=== PATIENT | female | born 1980 | race Caucasian/White ===

== ENCOUNTER 2022-07-16 18:30 | Emergency (ER) | payer OTHER ==
[~2022-07-16] VITALS: Ht 160 cm; Wt 59.0 kg
[2022-07-16] MEDS ORDERED: SULF-59 PO (19:11)
--- NOTE | 2022-07-16 19:35 | NUR ---
Patient discharged with v/s stable. Written and verbal after care instructions given and explained. Patient verbalized understanding. Police with steady gait. All questions addressed prior to discharge. Advised to follow up with [employer]D.
--- NOTE | 2022-07-16 19:37 | NUR ---
Pt seen and evaluated by [facility]
== END 2022-07-16 19:37 ==
LOC: MED 18:30
DX: L03.011 Cellulitis of right finger (principal); Z02.89 Encounter for other administrative examinations; Z79.899 Other long term (current) drug therapy
CPT/HCPCS: 99283